=== PATIENT | female | born 1950 | race Caucasian/White ===

== ENCOUNTER → 2018-10-25 | Outpatient (CLI) | payer MEDICARE, BC ==
[2018-10-26 14:31] LABS: Stool Occult Bld Immuno 1 Negative (NEGATIVE); Stool Occult Bld Immuno 2 Negative (NEGATIVE)
== END | disposition home or self-care (01) ==
LOC: LAB SHORT 15:37 → LAB 15:37
PROVIDERS: Internal Medicine Gastroenterology
DX: Z12.11 Encounter for screening for malignant neoplasm of colon (principal); K57.30 Diverticulosis of large intestine without perforation or abscess without bleeding; Z80.0 Family history of malignant neoplasm of digestive organs
CPT/HCPCS: 82274

== ENCOUNTER 2019-05-09 06:50 | Day surgery (SDC) | payer MEDICARE, BC ==
[~2019-05-09] VITALS: Ht 167.6 cm; Wt 80.8 kg
[2019-05-09] MEDS ORDERED: ACID REDUCER 1150 MG (07:18)
== END 2019-05-09 08:44 | disposition home or self-care (01) ==
LOC: ORSCSDS 06:50
PROVIDERS: Surgery
PROC: 0DB68ZX Excision of Stomach, Via Natural or Artificial Opening Endoscopic, Diagnostic (ICD-10-PCS; principal; 2019-05-09 08:00)
PROC: 0DB48ZX Excision of Esophagogastric Junction, Via Natural or Artificial Opening Endoscopic, Diagnostic (ICD-10-PCS; principal; 2019-05-09 08:00)
DX: K21.9 Gastro-esophageal reflux disease without esophagitis (principal); K22.70 Barrett's esophagus without dysplasia; K29.50 Unspecified chronic gastritis without bleeding
CPT/HCPCS: 88305; 88342; J0461; J2405; J2704; J7120

== ENCOUNTER → 2020-12-31 | Outpatient (CLI) | payer MEDICARE, BC ==
[~2020-12-31] MED LIST: ACID REDUCER 1150 MG
== END | disposition home or self-care (01) ==
LOC: PLD 14:53 → LAB SHORT 14:53
DX: D22.5 Melanocytic nevi of trunk (principal)
CPT/HCPCS: 88305

== ENCOUNTER 2021-12-23 11:50 | Day surgery (SDC) | payer MEDICARE, BC ==
[~2021-12-23] VITALS: Ht 167.6 cm; Wt 78.7 kg
[2021-12-23] MEDS ORDERED: PROP10 (12:01)
[2021-12-23] MEDS ORDERED: MULVITA (12:06)
[2021-12-23] MEDS ORDERED: CLIMARA1 EACH (12:06)
[2021-12-23] MEDS ORDERED: Aspir 8181 MG (12:06)
== END 2021-12-23 14:00 | disposition home or self-care (01) ==
LOC: ORSCSDS 11:50
PROVIDERS: Surgery
PROC: 0DB48ZX Excision of Esophagogastric Junction, Via Natural or Artificial Opening Endoscopic, Diagnostic (ICD-10-PCS; principal; 2021-12-23 13:00)
PROC: 0DJD8ZZ Inspection of Lower Intestinal Tract, Via Natural or Artificial Opening Endoscopic (ICD-10-PCS; principal; 2021-12-23 13:00)
DX: K22.70 Barrett's esophagus without dysplasia (principal); Z12.11 Encounter for screening for malignant neoplasm of colon; K21.9 Gastro-esophageal reflux disease without esophagitis; I10 Essential (primary) hypertension; K44.9 Diaphragmatic hernia without obstruction or gangrene; K20.90 Esophagitis, unspecified without bleeding; Z79.899 Other long term (current) drug therapy
CPT/HCPCS: 43239; G0121; 88305; J0330; J2405; J2704; J7120

== ENCOUNTER → 2022-01-25 | Outpatient (CLI) | payer MEDICARE, BC ==
[~2022-01-25] MED LIST changes: +Aspir 8181 MG; +CLIMARA1 EACH; +MULVITA; +PROP10
== END | disposition home or self-care (01) ==
LOC: LAB SHORT 08:44 → LAB 08:44
DX: D22.39 Melanocytic nevi of other parts of face (principal); D22.112 Melanocytic nevi of right lower eyelid, including canthus
CPT/HCPCS: 88305

== ENCOUNTER 2023-08-29 06:03 | Observation (INO) | payer MEDICARE, BC ==
[2023-08-29] VITALS (14 sets, daily range): BP systolic 137–165; BP diastolic 67–83
[~2023-08-29] VITALS: Ht 167 cm; Wt 81.0 kg
[~2023-08-29 06:03] MED LIST changes: +FAMO40 PO; -PROP10; +PROP10 PO
[2023-08-29 07:25] LABS: Bun/Creatinine Ratio 17.6 (12.0-20.0); Calcium, Blood 9.2 mg/dL (8.5-10.1); Creatinine, Blood 0.68 mg/dL (0.40-1.00); Potassium, Blood 3.6 mmol/L (3.5-5.5)
[2023-08-29 07:31] LABS: BASOPHILS ABSOLUTE AUTO 0.05 K/mm3 (0.00-0.23); BASOPHILS PERCENT AUTO 1 % (0-2); EOSINOPHILS ABSOLUTE AUTO 0.12 K/mm3 (0.00-0.68); EOSINOPHILS PERCENT AUTO 2 % (0-6); Hematocrit 41.7 % (33.0-51.0); IMMATURE GRAN ABSOLUTE AUTO 0.01 K/mm3 (0.00-0.10); IMMATURE GRAN PERCENT AUTO 0 % (0-1); LYMPHOCYTES ABSOLUTE AUTO 1.81 K/mm3 (0.84-5.20); LYMPHOCYTES PERCENT AUTO 34 % (21-46); MONOCYTES ABSOLUTE AUTO 0.57 K/mm3 (0.16-1.47); MONOCYTES PERCENT AUTO 11 % (4-13); Mean Corpuscular HGB 30.2 pg (26.0-34.0); Mean Corpuscular HGB Conc 33.6 g/dL (31.5-36.5); Mean Corpuscular Volume 90 fL (80-100); Mean Platelet Volume 11.8 fL (9.1-12.4); NEUTROPHILS ABSOLUTE AUTO 2.85 K/mm3 (1.96-9.15); NEUTROPHILS PERCENT AUTO 53 % (41-73); Platelet Count 231 K/mm3 (150-400); RDW Coefficient Variation 14.1 % (11.7-14.2); RDW Standard Deviation 46.5 fL (35.1-46.3); Red Blood Cell Count 4.63 M/mm3 (3.80-5.20); White Blood Cell Count 5.41 K/mm3 (4.00-11.30)
--- NOTE | 2023-08-29 07:32 | NUR ---
History, Chart, Medications and Allergies reviewed before start of procedure. Ambulatory in Day Surgery. Pre-Op teaching done. Pt verbalizes understanding. Patient confirms NPO status and agrees with scheduled surgery. Patient reports completing Chlorhexadine shower X2 prior to admission to hospital. Surgical site prepped with 2% Chlorhexidine cloth wipe. Lungs clear T/O to Auscultation. Patient States Post-Procedure ride home has been arranged.
--- NOTE | 2023-08-29 12:19 | NUR ---
PT ARRIVED TO THE ROOM AT APPROXIMATELY 1035. PT REPORTS SHOULDER PAIN, AND MINIMAL ABD PAIN. PT STARTED ON ICE CHIPS AND SIPS OF CLEARS. PT EDUCATED THAT DIET WILL BE CLEAR LIQUID TODAY AND ADVANCE TO FULL LIQUID TOMORROW IF SHE TOLERATES WELL. SHE WAS ALSO EDUCATED TO NOT DRINK CARBONATED BEVERAGES. FAMILY AT BEDSIDE FOR SUPPORT. VSS. PT EDUCATED TO USE CALL LIGHT AND IT IS WITHIN REACH.
--- NOTE | 2023-08-29 18:14 | NUR ---
SHIFT SUMMARY PT IS POD#0 FROM ARSLAN FUNDOPLICATION WITH DR. EGAN. PAIN MANAGED WITH TORADOL. PT IS TOLERATING SMALL AMOUNTS OF CLEAR LIQUIDS. PLAN TO ADVANCE TO FULL LIQUID TOMORROW IF PT CONTINUES TO TOLERATE CLEAR LIQUIDS. PT IS A 1 PERSON SBA WHEN OOB.
[2023-08-30 03:04] VITALS: BP 144/72
--- NOTE | 2023-08-30 06:05 | NUR ---
SHIFT SUMMARY PT IS POD#1 FROM A ROBOTIC ARSLAN FUNDOPLICATION. SHE IS A&O, ON RA, AND IS A SBA/CONTACT GUARD TO THE BATHROOM. PT'S LAP SITES ARE C/D/I AND THE PT'S VITAL SIGNS WERE STABLE THROUGHOUT THE NIGHT. PT IS TO BE ADVANCED TO A FULL LIQUID DIET THIS AM. MEDICATED PT'S PAIN PER EMAR. BED IS IN LOWEST POSITION, CALL LIGHT IS WITHIN REACH.
[2023-08-30 07:41] VITALS: BP 134/62
--- NOTE | 2023-08-30 09:00 | NUR ---
Pt laying in bed awake a/ox4, pleasant and cooperative with care, follows commands well, lungs are clear t/o, on r/a, resp even and unlabored, no cough noted, hrr, no edema noted, ppp+2, cap refill <3sec, vs stable, afebrile, piv site is clear and patent, btx4, abd flat soft nontender, voids without diff, skin c/w/d, maew, keke, call light in reach.
[2023-08-30] MEDS ORDERED: OXAYDO5 M1 PO (11:38)
--- NOTE | 2023-08-30 15:17 | NUR ---
ESCORTED OUT VIA WC TO PRIVATE VEHICLE
--- NOTE | 2023-08-30 15:26 | NUR ---
Pt has been discharged to home, went over discharge instructions, she verbalized understanding, iv removed intact, left via wheelchair with nurse in attendence.
== END 2023-08-30 15:15 | disposition home or self-care (01) ==
LOC: SURS 06:03 → PRE IP 06:03 → SURS 06:03 → PRE IP 07:30 → SURS 07:31
PROVIDERS: Anesthesiology; ADMIT Surgery
DX: K21.00 Gastro-esophageal reflux disease with esophagitis, without bleeding (principal); K44.9 Diaphragmatic hernia without obstruction or gangrene; I10 Essential (primary) hypertension; Z79.82 Long term (current) use of aspirin; Z79.899 Other long term (current) drug therapy
CPT/HCPCS: 80048; 85025; 93005; 93010; 94762; A9270; J1100; J1650; J1885; J2371; J2405; J2704; J3010; J7120

== ENCOUNTER 2024-06-13 09:18 | Day surgery (SDC) | payer MEDICARE, BC ==
[~2024-06-13] VITALS: Ht 167.6 cm; Wt 74.5 kg
[~2024-06-13 09:18] MED LIST changes: +Balanced Salt Epinephrine Irrigation Solution 500 mL IR SCH; +Lidocaine HCl/Pf 1% 5 ML VIAL ONE; +Lidocaine HCl/Pf 1% 5 ML VIAL XX SCH; +Moxifloxacin HCL 0.5 MG/0.1 ML 0.4MLSYR LEFTEYE SCH; +NS 500 ML IV ONE; +OXAYDO5 M1 PO; +PHENYLEPHRINE\\TROPICAMIDE\\TETRACAINE OPHTHALMIC DILATING SOLN LEFTEYE PRN; +Povidone-Iodine 450 DROP/30 ML Solution LEFTEYE SCH; +Triamcinolone Inj Susp 40 MG / ML 1ML Vial INJ SCH; +Triamcinolone Inj Susp 40 MG / ML 1ML Vial ONE
[2024-06-13] MEDS ORDERED: NS 500 ML IV ONE (09:37)
--- NOTE | 2024-06-13 09:37 | NUR ---
06/13/24 0937 Monique Nogueira AT 0930 PLEDGET AT 0931
[2024-06-13] MEDS ORDERED: Midazolam HCl 1MG / ML 2ML Vial ONE (09:55)
[2024-06-13] MEDS ORDERED: FentaNYL Citrate 50 MCG/ML 2 ML Injection ONE (09:55)
[2024-06-13 13:01] VITALS: BP 148/78
== END 2024-06-13 11:06 | disposition home or self-care (01) ==
LOC: ORSCSDS 09:18
PROVIDERS: Ophthalmology
PROC: 08RK3JZ Replacement of Left Lens with Synthetic Substitute, Percutaneous Approach (ICD-10-PCS; principal; 2024-06-13 10:30)
DX: H25.812 Combined forms of age-related cataract, left eye (principal); H52.202 Unspecified astigmatism, left eye; H52.4 Presbyopia; Z96.1 Presence of intraocular lens; I10 Essential (primary) hypertension; K21.9 Gastro-esophageal reflux disease without esophagitis; Z79.899 Other long term (current) drug therapy
CPT/HCPCS: J2001; J2250; J3010; J3301; J7040; V2632

== ENCOUNTER 2025-06-10 14:23 | Day surgery (SDC) | payer MEDICARE, BC ==
[~2025-06-10] VITALS: Ht 167.6 cm; Wt 76.2 kg
[2025-06-10] VITALS (12 sets, daily range): BP systolic 82–203; BP diastolic 38–130
[~2025-06-10 14:23] MED LIST changes: -Balanced Salt Epinephrine Irrigation Solution 500 mL IR SCH; -Lidocaine HCl/Pf 1% 5 ML VIAL ONE; -Lidocaine HCl/Pf 1% 5 ML VIAL XX SCH; -Moxifloxacin HCL 0.5 MG/0.1 ML 0.4MLSYR LEFTEYE SCH; -NS 500 ML IV ONE; -PHENYLEPHRINE\\TROPICAMIDE\\TETRACAINE OPHTHALMIC DILATING SOLN LEFTEYE PRN; -Povidone-Iodine 450 DROP/30 ML Solution LEFTEYE SCH; -Triamcinolone Inj Susp 40 MG / ML 1ML Vial INJ SCH; -Triamcinolone Inj Susp 40 MG / ML 1ML Vial ONE
[2025-06-10] MEDS ORDERED: ASPI81CH PO (15:36)
[2025-06-10] MEDS ORDERED: PRAM.125 PO (15:38)
--- NOTE | 2025-06-10 16:10 | NUR ---
Ambulatory in Day Surgery. History, Chart, Medications and Allergies reviewed before start of procedure. Lungs clear T/O to Auscultation. Patient confirms NPO status and agrees with scheduled surgery. Pre-Op teaching done. Pt verbalizes understanding. Patient States Post-Procedure ride home has been arranged.
--- NOTE | 2025-06-10 17:08 | NUR ---
06/10/25 Diana Alexis CONFIRMED AND REVIEWED H&P, MEDCICATIONS, ALLERGIES, MEDICAL HISTORY, RESPIRATORY HISTORY, VITAL SIGNS, 3-LEAD EKG, CONSENTS, AND PHYSICIAN ORDERS. PATIENT CONFIRMS NPO STATUS AND AGREES WITH SCHEDULED PROCEDURE. MONITOR INTACT WITH CONTINUOUS PULSE OXIMETRY, CAPNOGRAPHY, 3-LEAD EKG, INTERMITTENT BP. SUPPLEMENTAL O2 TO BE TITRATED THROUGHOUT PROCEDURE TO MAINTAIN O2 SATURATION ABOVE 90%. PATIENT DETERMINED TO BE ASA APPROPRIATE FOR PROPOFOL SEDATION PRIOR TO START OF PROCEDURE BY DR. EGAN.
--- NOTE | 2025-06-10 17:47 | NUR ---
REVIEWED DISCHARGE INSTRUCTIONS WITH PT AND SPOUSE. BOTH VERBALIZE UNDERSTANDING. PT DISCHARGED TO HOME, OUT VIA WHEELCHAIR WITH BELONGINGS AND DISCHARGE INSTRUCTIONS ON HAND.
== END 2025-06-10 17:47 | disposition home or self-care (01) ==
LOC: ORSCSDS 14:23 → ORSCMMR 14:24 → ORSCSDS 17:47
PROVIDERS: Surgery
PROC: 0DJ08ZZ Inspection of Upper Intestinal Tract, Via Natural or Artificial Opening Endoscopic (ICD-10-PCS; principal; 2025-06-10 16:00)
DX: K22.70 Barrett's esophagus without dysplasia (principal); K21.9 Gastro-esophageal reflux disease without esophagitis; Z98.890 Other specified postprocedural states; I10 Essential (primary) hypertension; Z79.82 Long term (current) use of aspirin; Z79.899 Other long term (current) drug therapy
CPT/HCPCS: J2704; J7120